=== PATIENT | female | born 1970 | race Caucasian/White ===

== ENCOUNTER 2017-03-15 04:09 | Emergency (ER) | payer SELFPAY ==
[~2017-03-15] VITALS: Ht 162.6 cm; Wt 61.3 kg
[~2017-03-15 04:09] MED LIST: AZITHROMYCIN250 MG PO; NOHOMEMEDS; VENTOLIN HFA18 GM IH
[2017-03-15] MEDS ORDERED: ROBITUSSIN AC,T10 ML PO (05:31)
[2017-03-15 05:50] VITALS: BP 115/76
== END 2017-03-15 05:51 | disposition home or self-care (01) ==
LOC: EME 04:09
DX: R05 Cough (principal); S29.011A Strain of muscle and tendon of front wall of thorax, initial encounter; X50.9XXA Other and unspecified overexertion or strenuous movements or postures, initial encounter; F17.200 Nicotine dependence, unspecified, uncomplicated
CPT/HCPCS: 71020; 93005; 99281; 99284; J8540